=== PATIENT | male | born 1965 | race Caucasian/White ===

== ENCOUNTER 2016-04-08 05:32 | Emergency (ER) | payer MEDICAID ==
[~2016-04-08] VITALS: Ht 195.6 cm; Wt 172.4 kg
[~2016-04-08 05:32] MED LIST: ASPI-231 PO; CARV3.1240 PO; CHOL20007 OR; GABA800T97 PO; GLIP-116 PO; INSLANTI SC; LIS20T PO; NOR10T PO; SIMV-8 PO; WARF7.5T20 PO
[2016-04-08] MEDS ORDERED: cloNIDine HCL 0.1 MG TAB ONE (05:45)
[2016-04-08] MEDS ORDERED: cloNIDine HCL 0.1 MG TAB PO ONE (06:00)
[2016-04-08 06:05] LABS: Urine RBC None Seen /hpf (0 - 3)
[2016-04-08 06:16] LABS: Urine Bilirubin Negative (Negative); Urine Blood Negative /uL (Negative); Urine Color Yellow (Yellow); Urine Glucose 2+ mg/dL (Normal); Urine Ketone Negative (Negative); Urine Nitrite Negative (Negative); Urine Urobilinogen Normal (Negative); Urine pH 5.5 (5.0-8.0)
[2016-04-08 07:07] LABS: DEFINITIVE VIEW TRANSMISSION; Hematocrit 43.5 % (41.0-53.0); Hemoglobin 14.1 g/dL (13.5-17.5); Mean Corpuscular Hemoglobin 29.7 pg (28.0-32.0); Mean Corpuscular Hgb Conc. 32.4 g/dL (32.0-36.0); Mean Corpuscular Volume 91.7 fL (80.0-100.0); Mean Platelet Volume 7.3 fL (7.4-10.4); Platelet Count (auto) 276 10^3/uL (140-450); Red Cell Distribution Width 12.6 % (11.6-16.0); SUSPECT VIEW TRANSMISSION
[2016-04-08 07:21] LABS: Partial Thromboplastin Time 26.3 sec (22.64-33.71)
[2016-04-08 07:27] LABS: Albumin 3.7 g/dL (3.4-5.0); BUN/Creatinine Ratio 20.4; Bilirubin, Total 0.4 mg/dL (0.2-1.0); Calcium 9.1 mg/dL (8.5-10.1); INR 1.35 (0.9-1.15); Metamyelocytes % 0; Myelocytes % 0; Potassium 3.9 mmol/L (3.5-5.1); Promyelocytes % 0; Prothrombin Time 13.9 sec (9.37-12.3); Reactive Lymphocytes 0
[2016-04-08 07:59] LABS: Platelet Estimate Adequate
[2016-04-08 08:24] LABS: B-Type Natriuretic Peptide 34.04 pg/mL (0-100)
[2016-04-08 08:35] LABS: Temperature: 22.2 C (20.0-25.0)
[2016-04-08 09:44] VITALS: BP 159/86
== END 2016-04-08 11:22 | disposition home or self-care (01) ==
LOC: ER 05:36
DX: R51 Headache (principal); E78.5 Hyperlipidemia, unspecified; Z86.73 Personal history of transient ischemic attack (TIA), and cerebral infarction without residual deficits; Z86.718 Personal history of other venous thrombosis and embolism; I10 Essential (primary) hypertension; E11.65 Type 2 diabetes mellitus with hyperglycemia; E66.01 Morbid (severe) obesity due to excess calories; Z68.42 Body mass index [BMI] 45.0-49.9, adult
CPT/HCPCS: 36415; 70450; 71010; 80053; 81001; 83735; 83880; 84484; 85007; 85027; 85379; 85610; 85730; 93005

== ENCOUNTER 2017-11-11 17:36 | Emergency (ER) | payer MEDICARE, MEDICAID ==
[~2017-11-11] VITALS: Ht 195.6 cm; Wt 152.4 kg
[2017-11-11 18:51] VITALS: BP 143/79
[2017-11-11] MEDS ORDERED: DESITIN (ZINC OXIDE 40%) OINT 28G TUBE TOP ONE (19:15)
== END 2017-11-11 20:23 | disposition home or self-care (01) ==
LOC: ER 18:38
DX: I89.0 Lymphedema, not elsewhere classified (principal); I25.10 Atherosclerotic heart disease of native coronary artery without angina pectoris; E78.00 Pure hypercholesterolemia, unspecified; I12.9 Hypertensive chronic kidney disease with stage 1 through stage 4 chronic kidney disease, or unspecified chronic kidney disease; E11.22 Type 2 diabetes mellitus with diabetic chronic kidney disease; N18.9 Chronic kidney disease, unspecified; Z79.82 Long term (current) use of aspirin; Z79.01 Long term (current) use of anticoagulants; Z79.891 Long term (current) use of opiate analgesic; Z79.4 Long term (current) use of insulin; Z79.899 Other long term (current) drug therapy

== ENCOUNTER 2019-09-21 16:58 | Inpatient (IN) | payer OTHER, MEDICAID ==
[~2019-09-21] VITALS: Ht 193 cm; Wt 142.2 kg
[~2019-09-21 16:58] MED LIST changes: -GLIP-116 PO; +GLIP10TA9 PO
[2019-09-21] MEDS ORDERED: SODIUM CHLORIDE 0.9% 500 ML IVB ONE (17:11)
[2019-09-21] MEDS ORDERED: levoFLOXacin 500MG 100 ML IV ONE (17:15)
[2019-09-21] MEDS ORDERED: SUCCINYLCHOLINE CHLORIDE 20 MG/ML 10ML VIAL IV ONE (20:00)
[2019-09-21] MEDS ORDERED: ETOMIDATE (2MG/ML) 20ML VIAL IV ONE (20:00)
[2019-09-21 20:20] VITALS: BP 97/35
[2019-09-21] MEDS ORDERED: MIDAZOLAM DRIP 50 mg/50mL 50 ML IV ONE (20:30)
[2019-09-21] MEDS: PROPOFOL 100 ML IV SCH (20:40)
[2019-09-21] MEDS: MIDAZOLAM DRIP 50 mg/50mL 50 ML IV SCH (20:40)
[2019-09-21 20:42] LABS: Basophils # (auto) 0 10 ^3/uL (0-0.2); Basophils % (auto) 0.1 % (0.0-2.0); Eosinophils # (auto) 0 10 ^3/uL (0-0.8); Lymphocytes # (auto) 0.5 10 ^3/uL (0.4-5.4); Lymphocytes % (auto) 6.9 % (10.0-50.0); Monocytes # (auto) 0.8 10 ^3/uL (0-1.3); Red Cell Distribution Width 14.4 % (11.8-14.3)
[2019-09-21 20:44] LABS: Hematocrit 20.7 % (41.0-53.0); Mean Corpuscular Hemoglobin 32.4 pg (28.0-32.0); Mean Corpuscular Hgb Conc. 31.8 g/dL (32.0-36.0); Mean Corpuscular Volume 101.8 fL (80.0-100.0); Monocytes % (auto) 10.2 % (0.0-12.0); Neutrophils # (auto) 6.1 10 ^3/uL (1.6-8.6); Neutrophils % (auto) 82.8 % (37.0-80.0); Platelet Count (auto) 138 10^3/uL (140-450); Red Blood Cells 2.03 10^6/uL (4.5-5.90); White Blood Cell 7.4 10^3/uL (4.4-10.8)
[2019-09-21 20:53] LABS: Albumin 3.2 g/dL (3.4-5.0); Anion Gap 15 (5-15); Blood Urea Nitrogen 75 mg/dL (7-18); Calcium 8.2 mg/dL (8.5-10.1); Carbon Dioxide 18 mmol/L (21-32); Chloride 103 mmol/L (98-107); Glucose 312 mg/dL (74-106); Magnesium 2.7 mg/dL (1.6-2.6); Sodium 136 mmol/L (136-145)
[2019-09-21 21:02] LABS: Alanine Aminotransferase 44 U/L (16-61); Alkaline Phosphatase 63 U/L (45-117); Aspartate Aminotransferase 192 U/L (15-37); BUN/Creatinine Ratio 11.9; Bilirubin, Total 0.5 mg/dL (0.2-1.0); GFR African American 12 mL/min; GFR Non-African American 10 mL/min; Lactate Dehydrogenase 294 U/L (87-241); Total Protein 7.1 g/dL (6.4-8.2)
[2019-09-21 21:06] LABS: Hemoglobin 6.6 g/dL (13.5-17.5)
[2019-09-21 21:08] LABS: Blood Alcohol < 3.0 mg/dL (0-5)
[2019-09-21] MEDS ORDERED: SODIUM CHLORIDE 0.9% 2,000 ML IV ONE (21:15)
[2019-09-21] MEDS: NOREPINEPHRINE 8 MG/250ML KIT 250 ML IV SCH (21:21)
[2019-09-21 21:58] LABS: Urine Bacteria NONE SEEN /hpf (None Seen); Urine Blood 2+ /uL (Negative); Urine Hyaline Cast FEW /lpf (0 - 2); Urine Mucus FEW (None Seen); Urine Specific Gravity 1.026 (1.001-1.035); Urine WBC 8 /hpf (0 - 3)
[2019-09-21 22:11] LABS: Amphetamine Screen, Urine NEGATIVE (NEGATIVE); Barbiturate Scree,Urine NEGATIVE (NEGATIVE); Benzodiazephine Screen, Urine NEGATIVE (NEGATIVE); Cannabinoid Screen, Urine NEGATIVE (NEGATIVE); Cocaine Screen, Urine NEGATIVE (NEGATIVE); Phencyclidine Screen, Urine NEGATIVE (NEGATIVE)
[2019-09-21 22:15] VITALS: BP 103/54
[2019-09-21 22:19] LABS: Opiate Scree,Urine POSITIVE (NEGATIVE)
[2019-09-21] MEDS ORDERED: SODIUM BICARBONATE 50ML VIAL 150 ML in D5W 5% 1,000 ML IV SCH (22:45)
[2019-09-21] MEDS ORDERED: CALCIUM CHL 100MG/ML 1,000 MG in D5W 5% 100 ML IV ONE (22:45)
[2019-09-21] MEDS ORDERED: SODIUM BICARBONATE 8.4 % INJ 50ML VIAL IV ONE (22:45)
[2019-09-21] MEDS ORDERED: PATIENTS OWN MEDICATION (zyvox 600 MG) IV SCH (22:45)
[2019-09-21] MEDS ORDERED: DEXTROSE (50%) 50ML SYRG IV PRN (22:45)
[2019-09-21] MEDS ORDERED: SODIUM ZIRCONIUM CYCL 10 GM PAK PO ONE (22:45)
[2019-09-21 22:59] VITALS: BP 103/54
[2019-09-21] MEDS ORDERED: ALBUTEROL SULF HFA 90MCG INH 200DOSE IN SCH (23:11)
[2019-09-21] MEDS ORDERED: NITROGLYCERIN 0.4 MG SL TAB SL PRN (23:15)
[2019-09-21] MEDS ORDERED: ONDANSETRON HCL 4 MG/2 ML VIAL IV PRN (23:15)
[2019-09-21] MEDS ORDERED: MORPHINE SULF INJ 2 MG/ML SYRINGE 1ML IV PRN (23:15)
[2019-09-21] MEDS ORDERED: PANTOPRAZOLE 40 MG/10 ML VIAL INJ IV ONE (23:30)
[2019-09-21 23:38] LABS: INR 1.07 (0.9-1.15)
[2019-09-21] MEDS: ACCU-CHEK COMFORT CURVE STRIP VI SCH (23:41)
[2019-09-21] MEDS: InsuLIN REG 1unit/0.01ml Soln (100units/ml) SC SCH (23:47)
[2019-09-21] MEDS: LINEZOLID 600MG/300ML 300 ML IV SCH (23:48)
[2019-09-22] VITALS (18 sets, daily range): BP systolic 122–149; BP diastolic 58–78
[2019-09-22] MEDS ORDERED: SODIUM CHLORIDE 0.9% 1,000 ML IV ONE (04:30)
[2019-09-22] MEDS ORDERED: PIPERACILLIN-TAZOB 2.25GM 50 ML IV SCH (06:00)
[2019-09-22] MEDS: ACCU-CHEK COMFORT CURVE STRIP VI SCH ×3 (06:30→16:58)
[2019-09-22] MEDS: InsuLIN REG 1unit/0.01ml Soln (100units/ml) SC SCH ×3 (07:15→16:57)
[2019-09-22 07:30] LABS: Basophils # (auto) 0 10 ^3/uL (0-0.2); Basophils % (auto) 0.4 % (0.0-2.0); Eosinophils # (auto) 0 10 ^3/uL (0-0.8); Eosinophils % (auto) 0.2 % (0.0-7.0); Hematocrit 38.9 % (41.0-53.0); Hemoglobin 12.9 g/dL (13.5-17.5); Lymphocytes # (auto) 1.1 10 ^3/uL (0.4-5.4); Lymphocytes % (auto) 9.9 % (10.0-50.0); Mean Corpuscular Hemoglobin 31.9 pg (28.0-32.0); Mean Corpuscular Hgb Conc. 33.2 g/dL (32.0-36.0); Mean Corpuscular Volume 96.1 fL (80.0-100.0); Monocytes # (auto) 1.5 10 ^3/uL (0-1.3); Monocytes % (auto) 13.4 % (0.0-12.0); Neutrophils # (auto) 8.3 10 ^3/uL (1.6-8.6); Neutrophils % (auto) 76.1 % (37.0-80.0); Platelet Count (auto) 228 10^3/uL (140-450); Red Blood Cells 4.05 10^6/uL (4.5-5.90); Red Cell Distribution Width 13.9 % (11.8-14.3); White Blood Cell 10.9 10^3/uL (4.4-10.8)
[2019-09-22 07:53] LABS: Albumin 2.9 g/dL (3.4-5.0); Magnesium 2.4 mg/dL (1.6-2.6); Potassium 5.3 mmol/L (3.5-5.1)
[2019-09-22 07:58] LABS: BUN/Creatinine Ratio 16.6; Bilirubin, Total 0.5 mg/dL (0.2-1.0); Phosphorus 6.2 mg/dL (2.5-4.90)
[2019-09-22] MEDS: MIDAZOLAM DRIP 50 mg/50mL 50 ML IV SCH ×3 (09:29→17:02)
[2019-09-22] MEDS: ASCORBIC ACID 500 MG TAB NG SCH ×3 (09:29→22:00)
[2019-09-22] MEDS: LINEZOLID 600MG/300ML 300 ML IV SCH ×2 (10:07→21:54)
[2019-09-22] MEDS: CHOLECALCIFEROL (VITD3) 1,000IU=25mCg TAB NG SCH (10:07)
[2019-09-22] MEDS: PANTOPRAZOLE 40 MG/10 ML VIAL INJ IV SCH (10:07)
[2019-09-22] MEDS: ZINC SULFATE 220mg CAP or TAB NG SCH (10:07)
[2019-09-22 13:02] LABS: Protein, Urine 63.8 mg/dL (0.0-11.9)
[2019-09-22] MEDS: SODIUM BICARBONATE 50ML VIAL 50 ML in SOD CHL 0.45% 1,000 ML IV SCH ×2 (13:08→19:18)
[2019-09-22] MEDS: PIPERACILLIN-TAZOB 2.25GM 50 ML IV SCH ×2 (13:09→18:14)
[2019-09-22] MEDS: PROPOFOL 100 ML IV SCH (17:02)
[2019-09-22] MEDS: NOREPINEPHRINE 8 MG/250ML KIT 250 ML IV SCH (19:18)
[2019-09-23] VITALS (59 sets, daily range): BP systolic 107–170; BP diastolic 59–86
[2019-09-23] MEDS: InsuLIN REG 1unit/0.01ml Soln (100units/ml) SC SCH ×5 (00:08→23:47)
[2019-09-23] MEDS: PIPERACILLIN-TAZOB 2.25GM 50 ML IV SCH ×5 (00:19→23:47)
[2019-09-23] MEDS: ACCU-CHEK COMFORT CURVE STRIP VI SCH ×5 (00:19→23:49)
[2019-09-23 03:16] LABS: Basophils # (auto) 0 10 ^3/uL (0-0.2); Basophils % (auto) 0.1 % (0.0-2.0); Eosinophils # (auto) 0 10 ^3/uL (0-0.8); Hematocrit 36.2 % (41.0-53.0); Lymphocytes # (auto) 0.4 10 ^3/uL (0.4-5.4); Lymphocytes % (auto) 4.3 % (10.0-50.0); Mean Corpuscular Hemoglobin 31.8 pg (28.0-32.0); Mean Corpuscular Hgb Conc. 33.3 g/dL (32.0-36.0); Mean Corpuscular Volume 95.4 fL (80.0-100.0); Monocytes # (auto) 0.8 10 ^3/uL (0-1.3); Monocytes % (auto) 7.7 % (0.0-12.0); Neutrophils # (auto) 9.1 10 ^3/uL (1.6-8.6); Neutrophils % (auto) 87.9 % (37.0-80.0); Platelet Count (auto) 216 10^3/uL (140-450); Red Blood Cells 3.79 10^6/uL (4.5-5.90); Red Cell Distribution Width 13.5 % (11.8-14.3); White Blood Cell 10.3 10^3/uL (4.4-10.8)
[2019-09-23 03:51] LABS: Albumin 2.4 g/dL (3.4-5.0); BUN/Creatinine Ratio 25.6; Potassium 5.4 mmol/L (3.5-5.1)
[2019-09-23 03:53] LABS: Bilirubin, Total 0.5 mg/dL (0.2-1.0); Total Protein 6.4 g/dL (6.4-8.2)
[2019-09-23] MEDS: SODIUM BICARBONATE 50ML VIAL 50 ML in SOD CHL 0.45% 1,000 ML IV SCH (06:01)
[2019-09-23] MEDS: MIDAZOLAM DRIP 50 mg/50mL 50 ML IV SCH (08:32)
[2019-09-23] MEDS: ASCORBIC ACID 500 MG TAB NG SCH ×2 (10:00→21:45)
[2019-09-23] MEDS: LINEZOLID 600MG/300ML 300 ML IV SCH ×2 (10:25→21:45)
[2019-09-23] MEDS: SODIUM BICARBONATE 50ML VIAL 75 ML in SOD CHL 0.45% 1,000 ML IV SCH ×2 (10:25→23:47)
[2019-09-23] MEDS: ZINC SULFATE 220mg CAP or TAB NG SCH (10:55)
[2019-09-23] MEDS: PANTOPRAZOLE 40 MG/10 ML VIAL INJ IV SCH (10:55)
[2019-09-23] MEDS: CHOLECALCIFEROL (VITD3) 1,000IU=25mCg TAB NG SCH (10:56)
[2019-09-23 11:23] LABS: Basophils # (auto) 0 10 ^3/uL (0-0.2); Basophils % (auto) 0.3 % (0.0-2.0); Eosinophils # (auto) 0 10 ^3/uL (0-0.8); Hematocrit 39.6 % (41.0-53.0); Hemoglobin 13.1 g/dL (13.5-17.5); Lymphocytes # (auto) 0.7 10 ^3/uL (0.4-5.4); Mean Corpuscular Hemoglobin 31.4 pg (28.0-32.0); Mean Corpuscular Volume 94.9 fL (80.0-100.0); Monocytes # (auto) 1.1 10 ^3/uL (0-1.3); Monocytes % (auto) 10.1 % (0.0-12.0); Neutrophils # (auto) 9.3 10 ^3/uL (1.6-8.6); Neutrophils % (auto) 83.6 % (37.0-80.0); Platelet Count (auto) 206 10^3/uL (140-450); Red Blood Cells 4.18 10^6/uL (4.5-5.90); Red Cell Distribution Width 13.4 % (11.8-14.3); White Blood Cell 11.2 10^3/uL (4.4-10.8)
[2019-09-23 11:42] LABS: Anion Gap 10 (5-15); Blood Urea Nitrogen 58 mg/dL (7-18); Calcium 8.8 mg/dL (8.5-10.1); Carbon Dioxide 18 mmol/L (21-32); Chloride 112 mmol/L (98-107); Potassium 5.1 mmol/L (3.5-5.1); Sodium 140 mmol/L (136-145)
[2019-09-23 11:51] LABS: Alanine Aminotransferase 36 U/L (16-61); Albumin 2.5 g/dL (3.4-5.0); Alkaline Phosphatase 63 U/L (45-117); Aspartate Aminotransferase 68 U/L (15-37); BUN/Creatinine Ratio 28.3; Bilirubin, Total 0.6 mg/dL (0.2-1.0); GFR African American 43 mL/min; GFR Non-African American 36 mL/min; Glucose 301 mg/dL (74-106); Total Protein 6.8 g/dL (6.4-8.2)
[2019-09-23] MEDS: PROPOFOL 100 ML IV SCH ×2 (14:43→20:33)
[2019-09-23] MEDS ORDERED: DEXTROSE (50%) 50ML SYRG IV PRN (15:00)
[2019-09-23] MEDS ORDERED: APIXABAN 2.5 MG TAB PO ONE (15:00)
[2019-09-23] MEDS ORDERED: ACETAMINOPHEN 500 MG TAB PO PRN (15:45)
[2019-09-23] MEDS: NOREPINEPHRINE 8 MG/250ML KIT 250 ML IV SCH (20:33)
[2019-09-23] MEDS ORDERED: ASCORBIC ACID 500 MG TAB ONE (21:33)
[2019-09-23] MEDS: APIXABAN 2.5 MG TAB PO SCH (21:45)
[2019-09-24] VITALS (107 sets, daily range): BP systolic 104–171; BP diastolic 57–92
[2019-09-24] MEDS: MIDAZOLAM DRIP 50 mg/50mL 50 ML IV SCH ×4 (00:01→19:30)
[2019-09-24 04:37] LABS: Basophils # (auto) 0 10 ^3/uL (0-0.2); Basophils % (auto) 0.5 % (0.0-2.0); Eosinophils # (auto) 0 10 ^3/uL (0-0.8); Eosinophils % (auto) 0.4 % (0.0-7.0); Hematocrit 36.5 % (41.0-53.0); Hemoglobin 12.3 g/dL (13.5-17.5); Lymphocytes # (auto) 1.2 10 ^3/uL (0.4-5.4); Lymphocytes % (auto) 12.4 % (10.0-50.0); Mean Corpuscular Hemoglobin 31.5 pg (28.0-32.0); Mean Corpuscular Hgb Conc. 33.8 g/dL (32.0-36.0); Mean Corpuscular Volume 93.2 fL (80.0-100.0); Monocytes # (auto) 0.9 10 ^3/uL (0-1.3); Monocytes % (auto) 8.6 % (0.0-12.0); Neutrophils # (auto) 7.7 10 ^3/uL (1.6-8.6); Neutrophils % (auto) 78.1 % (37.0-80.0); Platelet Count (auto) 242 10^3/uL (140-450); Red Blood Cells 3.91 10^6/uL (4.5-5.90); Red Cell Distribution Width 13.1 % (11.8-14.3); White Blood Cell 9.9 10^3/uL (4.4-10.8)
[2019-09-24 04:54] LABS: Alanine Aminotransferase 32 U/L (16-61); Albumin 2.3 g/dL (3.4-5.0); Anion Gap 7 (5-15); Aspartate Aminotransferase 47 U/L (15-37); BUN/Creatinine Ratio 33.6; Blood Urea Nitrogen 50 mg/dL (7-18); Calcium 8.6 mg/dL (8.5-10.1); Carbon Dioxide 22 mmol/L (21-32); Chloride 112 mmol/L (98-107); GFR African American 63 mL/min; GFR Non-African American 52 mL/min; Glucose 259 mg/dL (74-106); Potassium 4.4 mmol/L (3.5-5.1); Sodium 141 mmol/L (136-145)
[2019-09-24 04:59] LABS: Alkaline Phosphatase 64 U/L (45-117); Bilirubin, Total 0.5 mg/dL (0.2-1.0); Total Protein 6.5 g/dL (6.4-8.2)
[2019-09-24] MEDS: ACCU-CHEK COMFORT CURVE STRIP VI SCH ×3 (06:00→18:12)
[2019-09-24] MEDS: InsuLIN REG 1unit/0.01ml Soln (100units/ml) SC SCH ×3 (06:00→18:34)
[2019-09-24] MEDS: PIPERACILLIN-TAZOB 2.25GM 50 ML IV SCH ×3 (06:00→18:12)
[2019-09-24] MEDS: SODIUM BICARBONATE 50ML VIAL 75 ML in SOD CHL 0.45% 1,000 ML IV SCH (06:00)
[2019-09-24] MEDS ORDERED: hydrALAZINE HCL 20 MG/ML VL ONE (06:35)
[2019-09-24] MEDS: hydrALAZINE HCL 20 MG/ML VL IV PRN ×2 (06:45→20:00)
[2019-09-24] MEDS: PROPOFOL 100 ML IV SCH ×6 (09:34→23:00)
[2019-09-24] MEDS: LINEZOLID 600MG/300ML 300 ML IV SCH ×2 (09:57→22:00)
[2019-09-24] MEDS: APIXABAN 2.5 MG TAB PO SCH ×2 (10:01→22:00)
[2019-09-24] MEDS: ZINC SULFATE 220mg CAP or TAB NG SCH (10:01)
[2019-09-24] MEDS: PANTOPRAZOLE 40 MG/10 ML VIAL INJ IV SCH (10:01)
[2019-09-24] MEDS: CHOLECALCIFEROL (VITD3) 1,000IU=25mCg TAB NG SCH (10:02)
[2019-09-24] MEDS ORDERED: ASCORBIC ACID 1,000 MG TAB ONE (10:09)
[2019-09-24] MEDS: ASCORBIC ACID 500 MG TAB NG SCH ×2 (10:10→22:00)
[2019-09-24] MEDS: SODIUM BICARBONATE 50ML VIAL 50 ML in SOD CHL 0.45% 1,000 ML IV SCH ×2 (11:59→23:00)
[2019-09-24] MEDS: NOREPINEPHRINE 8 MG/250ML KIT 250 ML IV SCH (19:58)
[2019-09-24] MEDS ORDERED: ASCORBIC ACID 500 MG TAB ONE (21:29)
[2019-09-25] VITALS (106 sets, daily range): BP systolic 35–169; BP diastolic 63–94
[2019-09-25] MEDS: MIDAZOLAM DRIP 50 mg/50mL 50 ML IV SCH ×3 (00:30→19:15)
[2019-09-25] MEDS: PROPOFOL 100 ML IV SCH ×8 (02:30→23:40)
[2019-09-25] MEDS: InsuLIN REG 1unit/0.01ml Soln (100units/ml) SC SCH ×5 (04:34→23:38)
[2019-09-25] MEDS: ACCU-CHEK COMFORT CURVE STRIP VI SCH ×5 (04:35→23:40)
[2019-09-25] MEDS: PIPERACILLIN-TAZOB 2.25GM 50 ML IV SCH ×5 (04:35→23:38)
[2019-09-25 04:38] LABS: Basophils # (auto) 0.1 10 ^3/uL (0-0.2); Basophils % (auto) 0.7 % (0.0-2.0); Eosinophils # (auto) 0.1 10 ^3/uL (0-0.8); Eosinophils % (auto) 1.8 % (0.0-7.0); Hematocrit 34.7 % (41.0-53.0); Hemoglobin 11.8 g/dL (13.5-17.5); Lymphocytes # (auto) 1.4 10 ^3/uL (0.4-5.4); Mean Corpuscular Hemoglobin 31.7 pg (28.0-32.0); Mean Corpuscular Hgb Conc. 34.1 g/dL (32.0-36.0); Mean Corpuscular Volume 93.2 fL (80.0-100.0); Monocytes # (auto) 0.8 10 ^3/uL (0-1.3); Monocytes % (auto) 10.5 % (0.0-12.0); Neutrophils # (auto) 4.8 10 ^3/uL (1.6-8.6); Nucleated Red Blood Cells % 0.1 %; Platelet Count (auto) 258 10^3/uL (140-450); Red Blood Cells 3.72 10^6/uL (4.5-5.90); Red Cell Distribution Width 13.1 % (11.8-14.3); White Blood Cell 7.2 10^3/uL (4.4-10.8)
[2019-09-25 05:10] LABS: Albumin 2.1 g/dL (3.4-5.0); Calcium 8.1 mg/dL (8.5-10.1); Potassium 4.3 mmol/L (3.5-5.1)
[2019-09-25 05:13] LABS: BUN/Creatinine Ratio 32.5; Bilirubin, Total 0.4 mg/dL (0.2-1.0); Total Protein 5.7 g/dL (6.4-8.2)
[2019-09-25] MEDS: SODIUM BICARBONATE 50ML VIAL 50 ML in SOD CHL 0.45% 1,000 ML IV SCH (09:00)
[2019-09-25] MEDS ORDERED: FUROSEMIDE 40 MG/4 ML VIAL ONE (10:43)
[2019-09-25] MEDS ORDERED: SODIUM BICARBONATE 50ML VIAL 50 ML in SOD CHL 0.45% 1,000 ML IV SCH (10:45)
[2019-09-25] MEDS ORDERED: FUROSEMIDE 40 MG/4 ML VIAL IV ONE (10:45)
[2019-09-25] MEDS ORDERED: INSULIN LANTUS (GLARGINE) 1 /0.01ml (100units/ml) SC ONE (11:00)
[2019-09-25] MEDS: CHOLECALCIFEROL (VITD3) 1,000IU=25mCg TAB NG SCH (11:09)
[2019-09-25] MEDS: ASCORBIC ACID 500 MG TAB NG SCH ×2 (11:09→21:59)
[2019-09-25] MEDS: ZINC SULFATE 220mg CAP or TAB NG SCH (11:09)
[2019-09-25] MEDS: LINEZOLID 600MG/300ML 300 ML IV SCH ×2 (11:09→22:00)
[2019-09-25] MEDS: PANTOPRAZOLE 40 MG/10 ML VIAL INJ IV SCH (11:09)
[2019-09-25] MEDS ORDERED: POTASSIUM EFFERVESENT TAB 25 MEQ GT ONE (11:15)
[2019-09-25] MEDS ORDERED: APIXABAN 2.5 MG TAB PO ONE (11:30)
[2019-09-25] MEDS: IPRATROPIUM BROM 0.5 MG/2.5ML INH SOL NEB SCH ×2 (12:04→18:13)
[2019-09-25] MEDS: ALBUTEROL SULF 2.5 MG/0.5ML(0.5%) NEB SOLN NEB PRN ×2 (12:04→18:13)
[2019-09-25] MEDS: NOREPINEPHRINE 8 MG/250ML KIT 250 ML IV SCH (20:58)
[2019-09-25] MEDS ORDERED: ASCORBIC ACID 500 MG TAB ONE (21:18)
[2019-09-25] MEDS: APIXABAN 5 MG TAB PO SCH (21:59)
[2019-09-25] MEDS ORDERED: INSULIN LANTUS (GLARGINE) 1 /0.01ml (100units/ml) SC SCH (22:00)
[2019-09-26] VITALS (102 sets, daily range): BP systolic 87–168; BP diastolic 53–85
[2019-09-26] MEDS: IPRATROPIUM BROM 0.5 MG/2.5ML INH SOL NEB SCH ×4 (00:28→18:18)
[2019-09-26] MEDS: PIPERACILLIN-TAZOB 2.25GM 50 ML IV SCH ×3 (04:49→18:05)
[2019-09-26] MEDS: InsuLIN REG 1unit/0.01ml Soln (100units/ml) SC SCH ×3 (04:49→18:08)
[2019-09-26] MEDS ORDERED: hydrALAZINE HCL 20 MG/ML VL ONE (04:51)
[2019-09-26] MEDS: MIDAZOLAM DRIP 50 mg/50mL 50 ML IV SCH (04:54)
[2019-09-26] MEDS: PROPOFOL 100 ML IV SCH (04:54)
[2019-09-26] MEDS: hydrALAZINE HCL 20 MG/ML VL IV PRN (04:56)
[2019-09-26] MEDS: ACCU-CHEK COMFORT CURVE STRIP VI SCH ×3 (06:00→18:07)
[2019-09-26 06:15] LABS: Basophils # (auto) 0 10 ^3/uL (0-0.2); Basophils % (auto) 0.5 % (0.0-2.0); Eosinophils # (auto) 0.2 10 ^3/uL (0-0.8); Eosinophils % (auto) 2.2 % (0.0-7.0); Hematocrit 36.3 % (41.0-53.0); Hemoglobin 12.6 g/dL (13.5-17.5); Lymphocytes # (auto) 1.7 10 ^3/uL (0.4-5.4); Lymphocytes % (auto) 22.3 % (10.0-50.0); Mean Corpuscular Hemoglobin 32.2 pg (28.0-32.0); Mean Corpuscular Hgb Conc. 34.8 g/dL (32.0-36.0); Mean Corpuscular Volume 92.5 fL (80.0-100.0); Monocytes # (auto) 0.7 10 ^3/uL (0-1.3); Monocytes % (auto) 9.8 % (0.0-12.0); Neutrophils # (auto) 4.9 10 ^3/uL (1.6-8.6); Neutrophils % (auto) 65.2 % (37.0-80.0); Platelet Count (auto) 388 10^3/uL (140-450); Red Blood Cells 3.92 10^6/uL (4.5-5.90); White Blood Cell 7.4 10^3/uL (4.4-10.8)
[2019-09-26 06:25] LABS: Potassium 5.2 mmol/L (3.5-5.1)
[2019-09-26 06:32] LABS: Albumin 2.2 g/dL (3.4-5.0); BUN/Creatinine Ratio 26.4; Bilirubin, Total 0.6 mg/dL (0.2-1.0); Calcium 8.5 mg/dL (8.5-10.1); Total Protein 6.6 g/dL (6.4-8.2)
[2019-09-26] MEDS: SODIUM CHLORIDE 0.9% 1,000 ML IV SCH (09:15)
[2019-09-26] MEDS ORDERED: AZITHROMYCIN 500MG/ 250ML 250 ML IV SCH (10:00)
[2019-09-26] MEDS: APIXABAN 5 MG TAB PO SCH ×2 (10:29→22:56)
[2019-09-26] MEDS: ZINC SULFATE 220mg CAP or TAB NG SCH (10:29)
[2019-09-26] MEDS: CHOLECALCIFEROL (VITD3) 1,000IU=25mCg TAB NG SCH (10:29)
[2019-09-26] MEDS: PANTOPRAZOLE 40 MG/10 ML VIAL INJ IV SCH (10:39)
[2019-09-26] MEDS ORDERED: VANCOMYCIN PER PHARMACY 0 MG IV SCH (11:00)
[2019-09-26] MEDS: INSULIN LANTUS (GLARGINE) 1 /0.01ml (100units/ml) SC SCH ×2 (12:30→22:56)
[2019-09-26] MEDS ORDERED: ASCORBIC ACID 500 MG TAB ONE (12:36)
[2019-09-26] MEDS: ASCORBIC ACID 500 MG TAB NG SCH ×2 (12:47→23:03)
[2019-09-26] MEDS: VANCOMYCIN 1GM/250ML 250 ML IV SCH ×2 (14:00→22:56)
[2019-09-26] MEDS: ALBUTEROL SULF 2.5 MG/0.5ML(0.5%) NEB SOLN NEB PRN (18:18)
[2019-09-26] MEDS: NOREPINEPHRINE 8 MG/250ML KIT 250 ML IV SCH (20:58)
[2019-09-27] VITALS (100 sets, daily range): BP systolic 95–173; BP diastolic 50–91
[2019-09-27] MEDS: ALBUTEROL SULF 2.5 MG/0.5ML(0.5%) NEB SOLN NEB PRN ×4 (00:24→18:14)
[2019-09-27] MEDS: IPRATROPIUM BROM 0.5 MG/2.5ML INH SOL NEB SCH ×4 (00:24→18:14)
[2019-09-27] MEDS: hydrALAZINE HCL 20 MG/ML VL IV PRN (01:55)
[2019-09-27] MEDS: PROPOFOL 100 ML IV SCH (02:00)
[2019-09-27 04:27] LABS: Basophils # (auto) 0 10 ^3/uL (0-0.2); Basophils % (auto) 0.3 % (0.0-2.0); Eosinophils # (auto) 0.3 10 ^3/uL (0-0.8); Hematocrit 39.1 % (41.0-53.0); Hemoglobin 13.1 g/dL (13.5-17.5); Lymphocytes # (auto) 1.6 10 ^3/uL (0.4-5.4); Lymphocytes % (auto) 18.1 % (10.0-50.0); Mean Corpuscular Hemoglobin 31.4 pg (28.0-32.0); Mean Corpuscular Hgb Conc. 33.6 g/dL (32.0-36.0); Mean Corpuscular Volume 93.5 fL (80.0-100.0); Monocytes # (auto) 0.8 10 ^3/uL (0-1.3); Monocytes % (auto) 9.3 % (0.0-12.0); Neutrophils # (auto) 6.3 10 ^3/uL (1.6-8.6); Neutrophils % (auto) 69.3 % (37.0-80.0); Nucleated Red Blood Cells % 0.1 %; Platelet Count (auto) 295 10^3/uL (140-450); Red Blood Cells 4.18 10^6/uL (4.5-5.90); Red Cell Distribution Width 13.2 % (11.8-14.3); White Blood Cell 9.1 10^3/uL (4.4-10.8)
[2019-09-27 04:45] LABS: Albumin 2.4 g/dL (3.4-5.0); Calcium 8.4 mg/dL (8.5-10.1)
[2019-09-27 04:47] LABS: BUN/Creatinine Ratio 26.6
[2019-09-27 04:49] LABS: Bilirubin, Total 0.4 mg/dL (0.2-1.0); Total Protein 6.7 g/dL (6.4-8.2)
[2019-09-27] MEDS: VANCOMYCIN 1GM/250ML 250 ML IV SCH ×3 (06:00→20:43)
[2019-09-27] MEDS: InsuLIN REG 1unit/0.01ml Soln (100units/ml) SC SCH ×4 (06:00→17:55)
[2019-09-27] MEDS: ACCU-CHEK COMFORT CURVE STRIP VI SCH ×4 (06:00→18:17)
[2019-09-27] MEDS: SODIUM CHLORIDE 0.9% 1,000 ML IV SCH ×2 (06:58→18:35)
[2019-09-27] MEDS: PIPERACILLIN-TAZOB 2.25GM 50 ML IV SCH ×3 (06:59→12:27)
[2019-09-27] MEDS: ZINC SULFATE 220mg CAP or TAB NG SCH (10:00)
[2019-09-27] MEDS: CHOLECALCIFEROL (VITD3) 1,000IU=25mCg TAB NG SCH (10:00)
[2019-09-27] MEDS ORDERED: levoFLOXacin 500MG 100 ML IV SCH (10:00)
[2019-09-27] MEDS: PANTOPRAZOLE 40 MG/10 ML VIAL INJ IV SCH (11:09)
[2019-09-27] MEDS: INSULIN LANTUS (GLARGINE) 1 /0.01ml (100units/ml) SC SCH ×2 (11:09→23:41)
[2019-09-27] MEDS: APIXABAN 5 MG TAB PO SCH ×2 (11:09→22:00)
[2019-09-27] MEDS: ASCORBIC ACID 500 MG TAB NG SCH (11:10)
[2019-09-27] MEDS: PIPERACILLIN-TAZOB 3.375GM 100 ML IV SCH (18:17)
[2019-09-27] MEDS: NOREPINEPHRINE 8 MG/250ML KIT 250 ML IV SCH (20:58)
[2019-09-27] MEDS: MIDAZOLAM DRIP 50 mg/50mL 50 ML IV SCH (22:13)
[2019-09-28] VITALS (89 sets, daily range): BP systolic 69–189; BP diastolic 41–103
[2019-09-28] MEDS: ALBUTEROL SULF 2.5 MG/0.5ML(0.5%) NEB SOLN NEB PRN ×2 (00:24→05:48)
[2019-09-28] MEDS: IPRATROPIUM BROM 0.5 MG/2.5ML INH SOL NEB SCH ×4 (00:24→19:26)
[2019-09-28] MEDS: VANCOMYCIN 1GM/250ML 250 ML IV SCH ×3 (03:00→17:00)
[2019-09-28 04:48] LABS: Basophils # (auto) 0 10 ^3/uL (0-0.2); Basophils % (auto) 0.4 % (0.0-2.0); Eosinophils # (auto) 0.4 10 ^3/uL (0-0.8); Eosinophils % (auto) 4.1 % (0.0-7.0); Hematocrit 38.3 % (41.0-53.0); Hemoglobin 12.5 g/dL (13.5-17.5); Lymphocytes # (auto) 1.7 10 ^3/uL (0.4-5.4); Mean Corpuscular Hemoglobin 30.7 pg (28.0-32.0); Mean Corpuscular Hgb Conc. 32.7 g/dL (32.0-36.0); Mean Corpuscular Volume 93.8 fL (80.0-100.0); Monocytes % (auto) 10.3 % (0.0-12.0); Neutrophils % (auto) 68.2 % (37.0-80.0); Platelet Count (auto) 307 10^3/uL (140-450); Red Blood Cells 4.08 10^6/uL (4.5-5.90); Red Cell Distribution Width 13.1 % (11.8-14.3); White Blood Cell 10.2 10^3/uL (4.4-10.8)
[2019-09-28 04:59] LABS: Calcium 8.3 mg/dL (8.5-10.1); Potassium 3.9 mmol/L (3.5-5.1)
[2019-09-28 05:06] LABS: Albumin 2.3 g/dL (3.4-5.0); BUN/Creatinine Ratio 25.7; Bilirubin, Total 0.4 mg/dL (0.2-1.0); Phosphorus 3.1 mg/dL (2.5-4.90); Total Protein 6.6 g/dL (6.4-8.2)
[2019-09-28] MEDS: ACCU-CHEK COMFORT CURVE STRIP VI SCH ×4 (06:00→17:58)
[2019-09-28] MEDS: InsuLIN REG 1unit/0.01ml Soln (100units/ml) SC SCH ×4 (06:00→17:58)
[2019-09-28] MEDS: PIPERACILLIN-TAZOB 3.375GM 100 ML IV SCH ×4 (06:00→17:58)
[2019-09-28] MEDS: hydrALAZINE HCL 20 MG/ML VL IV PRN (09:38)
[2019-09-28] MEDS: PANTOPRAZOLE 40 MG/10 ML VIAL INJ IV SCH (09:38)
[2019-09-28] MEDS: APIXABAN 5 MG TAB PO SCH ×2 (09:39→22:00)
[2019-09-28] MEDS: levoFLOXacin 750MG 150 ML IV SCH (09:39)
[2019-09-28] MEDS: INSULIN LANTUS (GLARGINE) 1 /0.01ml (100units/ml) SC SCH ×2 (10:24→22:20)
[2019-09-28] MEDS: MORPHINE SULF INJ 2 MG/ML SYRINGE 1ML IV PRN (11:10)
[2019-09-28] MEDS: SODIUM CHLORIDE 0.9% 1,000 ML IV SCH (11:15)
[2019-09-28] MEDS: DexMEDEtomidine 400 MCG in D5W 5% 96 ML IV SCH (12:16)
[2019-09-28] MEDS ORDERED: METOPROLOL TARTRATE 1MG/1ML-5ML VIAL IV ONE (12:30)
[2019-09-28] MEDS: NOREPINEPHRINE 8 MG/250ML KIT 250 ML IV SCH (20:58)
[2019-09-28] MEDS: MIDAZOLAM DRIP 50 mg/50mL 50 ML IV SCH (22:13)
[2019-09-29] VITALS (69 sets, daily range): BP systolic 96–196; BP diastolic 61–91
[2019-09-29] MEDS: InsuLIN REG 1unit/0.01ml Soln (100units/ml) SC SCH ×4 (00:10→17:58)
[2019-09-29] MEDS: ACCU-CHEK COMFORT CURVE STRIP VI SCH ×4 (00:10→17:56)
[2019-09-29] MEDS: VANCOMYCIN 1GM/250ML 250 ML IV SCH ×4 (00:10→21:50)
[2019-09-29] MEDS: PROPOFOL 100 ML IV SCH ×2 (00:11→17:43)
[2019-09-29] MEDS: IPRATROPIUM BROM 0.5 MG/2.5ML INH SOL NEB SCH ×4 (00:21→18:56)
[2019-09-29] MEDS: PIPERACILLIN-TAZOB 3.375GM 100 ML IV SCH ×4 (00:45→18:53)
[2019-09-29] MEDS: SODIUM CHLORIDE 0.9% 1,000 ML IV SCH (03:55)
[2019-09-29] MEDS: DexMEDEtomidine 400 MCG in D5W 5% 96 ML IV SCH ×2 (04:30→15:16)
[2019-09-29] MEDS: ALBUTEROL SULF 2.5 MG/0.5ML(0.5%) NEB SOLN NEB PRN ×3 (06:13→18:56)
[2019-09-29 06:55] LABS: Basophils # (auto) 0 10 ^3/uL (0-0.2); Basophils % (auto) 0.5 % (0.0-2.0); Eosinophils # (auto) 0.4 10 ^3/uL (0-0.8); Eosinophils % (auto) 4.3 % (0.0-7.0); Hematocrit 38.3 % (41.0-53.0); Hemoglobin 12.8 g/dL (13.5-17.5); Lymphocytes # (auto) 1.5 10 ^3/uL (0.4-5.4); Lymphocytes % (auto) 16.4 % (10.0-50.0); Mean Corpuscular Hemoglobin 31.3 pg (28.0-32.0); Mean Corpuscular Hgb Conc. 33.4 g/dL (32.0-36.0); Mean Corpuscular Volume 93.8 fL (80.0-100.0); Monocytes # (auto) 1.1 10 ^3/uL (0-1.3); Monocytes % (auto) 12.2 % (0.0-12.0); Neutrophils # (auto) 6.1 10 ^3/uL (1.6-8.6); Neutrophils % (auto) 66.6 % (37.0-80.0); Platelet Count (auto) 292 10^3/uL (140-450); Red Blood Cells 4.09 10^6/uL (4.5-5.90); Red Cell Distribution Width 12.8 % (11.8-14.3); White Blood Cell 9.2 10^3/uL (4.4-10.8)
[2019-09-29 07:12] LABS: Albumin 2.4 g/dL (3.4-5.0); BUN/Creatinine Ratio 22.9; Calcium 8.6 mg/dL (8.5-10.1); Potassium 3.4 mmol/L (3.5-5.1)
[2019-09-29 07:15] LABS: Bilirubin, Total 0.6 mg/dL (0.2-1.0); Total Protein 6.7 g/dL (6.4-8.2)
[2019-09-29] MEDS: levoFLOXacin 750MG 150 ML IV SCH (10:37)
[2019-09-29] MEDS: PANTOPRAZOLE 40 MG/10 ML VIAL INJ IV SCH (10:37)
[2019-09-29] MEDS: APIXABAN 5 MG TAB PO SCH ×2 (10:38→22:15)
[2019-09-29] MEDS: INSULIN LANTUS (GLARGINE) 1 /0.01ml (100units/ml) SC SCH ×2 (10:40→22:17)
[2019-09-29] MEDS: NOREPINEPHRINE 8 MG/250ML KIT 250 ML IV SCH (20:58)
[2019-09-29] MEDS: MIDAZOLAM DRIP 50 mg/50mL 50 ML IV SCH (22:13)
[2019-09-29] MEDS: hydrALAZINE HCL 20 MG/ML VL IV PRN (22:20)
[2019-09-30] VITALS (38 sets, daily range): BP systolic 154–191; BP diastolic 78–95
[2019-09-30] MEDS: ALBUTEROL SULF 2.5 MG/0.5ML(0.5%) NEB SOLN NEB PRN ×5 (00:16→23:58)
[2019-09-30] MEDS: IPRATROPIUM BROM 0.5 MG/2.5ML INH SOL NEB SCH ×5 (00:16→23:58)
[2019-09-30] MEDS: PIPERACILLIN-TAZOB 3.375GM 100 ML IV SCH ×4 (00:30→18:00)
[2019-09-30] MEDS: ACCU-CHEK COMFORT CURVE STRIP VI SCH ×4 (00:40→18:03)
[2019-09-30] MEDS: InsuLIN REG 1unit/0.01ml Soln (100units/ml) SC SCH ×4 (00:42→17:56)
[2019-09-30] MEDS: SODIUM CHLORIDE 0.9% 1,000 ML IV SCH ×3 (03:30→20:00)
[2019-09-30] MEDS: VANCOMYCIN 1GM/250ML 250 ML IV SCH ×3 (03:42→18:03)
[2019-09-30 04:41] LABS: Basophils # (auto) 0 10 ^3/uL (0-0.2); Basophils % (auto) 0.5 % (0.0-2.0); Eosinophils # (auto) 0.3 10 ^3/uL (0-0.8); Eosinophils % (auto) 3.3 % (0.0-7.0); Hematocrit 36.8 % (41.0-53.0); Hemoglobin 12.6 g/dL (13.5-17.5); Lymphocytes # (auto) 1.4 10 ^3/uL (0.4-5.4); Lymphocytes % (auto) 17.8 % (10.0-50.0); Mean Corpuscular Hemoglobin 31.5 pg (28.0-32.0); Mean Corpuscular Hgb Conc. 34.2 g/dL (32.0-36.0); Mean Corpuscular Volume 92.3 fL (80.0-100.0); Monocytes % (auto) 12.6 % (0.0-12.0); Neutrophils # (auto) 5.1 10 ^3/uL (1.6-8.6); Neutrophils % (auto) 65.8 % (37.0-80.0); Platelet Count (auto) 298 10^3/uL (140-450); Red Blood Cells 3.99 10^6/uL (4.5-5.90); Red Cell Distribution Width 12.8 % (11.8-14.3); White Blood Cell 7.7 10^3/uL (4.4-10.8)
[2019-09-30 05:02] LABS: BUN/Creatinine Ratio 17.5; Calcium 8.8 mg/dL (8.5-10.1)
[2019-09-30 05:17] LABS: Potassium 2.9 mmol/L (3.5-5.1)
[2019-09-30] MEDS: POTASSIUM CHL 20MEQ/100ML 100 ML IV SCH ×7 (05:45→22:02)
[2019-09-30] MEDS ORDERED: POTASSIUM CHL 20MEQ/100ML 100 ML IV ONE (05:58)
[2019-09-30] MEDS: APIXABAN 5 MG TAB PO SCH ×2 (09:30→22:00)
[2019-09-30] MEDS: PANTOPRAZOLE 40 MG/10 ML VIAL INJ IV SCH (09:44)
[2019-09-30] MEDS: INSULIN LANTUS (GLARGINE) 1 /0.01ml (100units/ml) SC SCH (09:44)
[2019-09-30] MEDS: levoFLOXacin 750MG 150 ML IV SCH (09:44)
[2019-09-30] MEDS ORDERED: GABA-339 PO (12:51)
[2019-09-30] MEDS ORDERED: ACETAMINOPHEN 650 MG RECT SUPP PR PRN (14:45)
[2019-09-30] MEDS: hydrALAZINE HCL 20 MG/ML VL IV PRN ×2 (16:10→22:04)
[2019-09-30] MEDS ORDERED: cloNIDine 0.1 mg/24hr 7 DAY PATCH TD SCH (17:45)
[2019-09-30] MEDS: LABETALOL HCL 5 MG/ML 4ML SYRINGE IV PRN ×2 (18:04→22:00)
[2019-09-30] MEDS ORDERED: LABETALOL HCL 5 MG/ML ML 20ML VIAL IV ONE (21:55)
[2019-10-01] VITALS (79 sets, daily range): BP systolic 126–194; BP diastolic 72–99
[2019-10-01] MEDS: VANCOMYCIN 1GM/250ML 250 ML IV SCH ×4 (00:56→21:50)
[2019-10-01 04:49] LABS: Basophils # (auto) 0.1 10 ^3/uL (0-0.2); Basophils % (auto) 1.1 % (0.0-2.0); Eosinophils # (auto) 0.3 10 ^3/uL (0-0.8); Eosinophils % (auto) 3.8 % (0.0-7.0); Hematocrit 37.8 % (41.0-53.0); Hemoglobin 12.7 g/dL (13.5-17.5); Lymphocytes # (auto) 1.5 10 ^3/uL (0.4-5.4); Lymphocytes % (auto) 21.4 % (10.0-50.0); Mean Corpuscular Hemoglobin 31.2 pg (28.0-32.0); Mean Corpuscular Hgb Conc. 33.5 g/dL (32.0-36.0); Mean Corpuscular Volume 93.3 fL (80.0-100.0); Monocytes % (auto) 13.4 % (0.0-12.0); Neutrophils # (auto) 4.3 10 ^3/uL (1.6-8.6); Neutrophils % (auto) 60.3 % (37.0-80.0); Nucleated Red Blood Cells % 0.1 %; Platelet Count (auto) 332 10^3/uL (140-450); Red Blood Cells 4.06 10^6/uL (4.5-5.90); White Blood Cell 7.2 10^3/uL (4.4-10.8)
[2019-10-01 05:14] LABS: BUN/Creatinine Ratio 14.1; Calcium 8.4 mg/dL (8.5-10.1); Potassium 3.7 mmol/L (3.5-5.1)
[2019-10-01] MEDS: hydrALAZINE HCL 20 MG/ML VL IV PRN (05:22)
[2019-10-01] MEDS: PIPERACILLIN-TAZOB 3.375GM 100 ML IV SCH ×5 (05:22→23:32)
[2019-10-01] MEDS: InsuLIN REG 1unit/0.01ml Soln (100units/ml) SC SCH ×5 (05:26→23:30)
[2019-10-01] MEDS: ACCU-CHEK COMFORT CURVE STRIP VI SCH ×5 (05:26→23:32)
[2019-10-01] MEDS: IPRATROPIUM BROM 0.5 MG/2.5ML INH SOL NEB SCH ×3 (06:30→19:24)
[2019-10-01] MEDS: ALBUTEROL SULF 2.5 MG/0.5ML(0.5%) NEB SOLN NEB PRN ×3 (06:31→19:24)
[2019-10-01] MEDS: LABETALOL HCL 5 MG/ML 4ML SYRINGE IV PRN (07:09)
[2019-10-01] MEDS: NOREPINEPHRINE 8 MG/250ML KIT 250 ML IV SCH (08:51)
[2019-10-01] MEDS: APIXABAN 5 MG TAB PO SCH ×3 (09:10→21:54)
[2019-10-01] MEDS: PANTOPRAZOLE 40 MG/10 ML VIAL INJ IV SCH (09:21)
[2019-10-01] MEDS: levoFLOXacin 750MG 150 ML IV SCH (11:10)
[2019-10-01] MEDS ORDERED: cloNIDine 0.1 mg/24hr 7 DAY PATCH TD SCH (11:15)
[2019-10-01] MEDS ORDERED: hydrALAZINE HCL 20 MG/ML VL IV PRN (11:15)
[2019-10-01] MEDS ORDERED: LABETALOL HCL 5 MG/ML 4ML SYRINGE IV PRN (11:15)
[2019-10-01] MEDS: SODIUM CHLORIDE 0.9% 1,000 ML IV SCH (21:54)
[2019-10-02] VITALS (55 sets, daily range): BP systolic 116–194; BP diastolic 60–94
[2019-10-02] MEDS: ALBUTEROL SULF 2.5 MG/0.5ML(0.5%) NEB SOLN NEB PRN ×3 (00:22→11:49)
[2019-10-02] MEDS: IPRATROPIUM BROM 0.5 MG/2.5ML INH SOL NEB SCH ×4 (00:22→18:42)
[2019-10-02] MEDS: VANCOMYCIN 1GM/250ML 250 ML IV SCH ×3 (04:35→17:00)
[2019-10-02 05:00] LABS: Basophils # (auto) 0.1 10 ^3/uL (0-0.2); Basophils % (auto) 0.8 % (0.0-2.0); Eosinophils # (auto) 0.3 10 ^3/uL (0-0.8); Eosinophils % (auto) 3.8 % (0.0-7.0); Lymphocytes # (auto) 1.6 10 ^3/uL (0.4-5.4); Lymphocytes % (auto) 21.1 % (10.0-50.0); Mean Corpuscular Hgb Conc. 33.5 g/dL (32.0-36.0); Mean Corpuscular Volume 92.6 fL (80.0-100.0); Monocytes % (auto) 12.6 % (0.0-12.0); Neutrophils # (auto) 4.8 10 ^3/uL (1.6-8.6); Neutrophils % (auto) 61.7 % (37.0-80.0); Nucleated Red Blood Cells % 0.1 %; Platelet Count (auto) 318 10^3/uL (140-450); Red Blood Cells 4.21 10^6/uL (4.5-5.90); Red Cell Distribution Width 12.9 % (11.8-14.3); White Blood Cell 7.8 10^3/uL (4.4-10.8)
[2019-10-02 05:17] LABS: BUN/Creatinine Ratio 14.6; Calcium 8.4 mg/dL (8.5-10.1); Potassium 3.2 mmol/L (3.5-5.1)
[2019-10-02] MEDS: PIPERACILLIN-TAZOB 3.375GM 100 ML IV SCH ×3 (05:33→18:26)
[2019-10-02] MEDS: InsuLIN REG 1unit/0.01ml Soln (100units/ml) SC SCH ×3 (05:34→17:46)
[2019-10-02] MEDS: ACCU-CHEK COMFORT CURVE STRIP VI SCH ×3 (05:34→17:41)
[2019-10-02] MEDS: PANTOPRAZOLE 40 MG/10 ML VIAL INJ IV SCH (09:34)
[2019-10-02] MEDS: APIXABAN 5 MG TAB PO SCH ×2 (09:34→22:00)
[2019-10-02] MEDS: levoFLOXacin 750MG 150 ML IV SCH (09:34)
[2019-10-02] MEDS ORDERED: POTASSIUM CHL 20 Meq TABLET PO ONE ×2 (10:00→11:00)
[2019-10-02] MEDS ORDERED: CARVEDILOL 3.125 MG TAB PO ONE (11:00)
[2019-10-02] MEDS ORDERED: LISINOPRIL 20 MG TAB PO ONE (11:00)
[2019-10-02] MEDS ORDERED: ASPirin-EC 81 mg tab PO ONE (11:15)
[2019-10-02] MEDS: MORPHINE SULF INJ 2 MG/ML SYRINGE 1ML IV PRN (20:50)
[2019-10-02] MEDS: CARVEDILOL 3.125 MG TAB PO SCH (22:00)
[2019-10-03] VITALS (45 sets, daily range): BP systolic 110–159; BP diastolic 58–85
[2019-10-03] MEDS: ACCU-CHEK COMFORT CURVE STRIP VI SCH ×4 (00:25→18:00)
[2019-10-03] MEDS: InsuLIN REG 1unit/0.01ml Soln (100units/ml) SC SCH ×4 (00:26→18:00)
[2019-10-03] MEDS: ALBUTEROL SULF 2.5 MG/0.5ML(0.5%) NEB SOLN NEB PRN ×4 (00:31→19:42)
[2019-10-03] MEDS: IPRATROPIUM BROM 0.5 MG/2.5ML INH SOL NEB SCH ×4 (00:31→19:42)
[2019-10-03 05:07] LABS: Basophils # (auto) 0.1 10 ^3/uL (0-0.2); Basophils % (auto) 0.8 % (0.0-2.0); Eosinophils # (auto) 0.3 10 ^3/uL (0-0.8); Eosinophils % (auto) 4.6 % (0.0-7.0); Hematocrit 38.6 % (41.0-53.0); Hemoglobin 12.9 g/dL (13.5-17.5); Lymphocytes # (auto) 1.4 10 ^3/uL (0.4-5.4); Lymphocytes % (auto) 18.6 % (10.0-50.0); Mean Corpuscular Hemoglobin 31.2 pg (28.0-32.0); Mean Corpuscular Hgb Conc. 33.6 g/dL (32.0-36.0); Mean Corpuscular Volume 92.8 fL (80.0-100.0); Monocytes # (auto) 0.8 10 ^3/uL (0-1.3); Monocytes % (auto) 10.1 % (0.0-12.0); Neutrophils % (auto) 65.9 % (37.0-80.0); Platelet Count (auto) 308 10^3/uL (140-450); Red Blood Cells 4.16 10^6/uL (4.5-5.90); Red Cell Distribution Width 13.2 % (11.8-14.3); White Blood Cell 7.6 10^3/uL (4.4-10.8)
[2019-10-03 05:23] LABS: Potassium 3.4 mmol/L (3.5-5.1)
[2019-10-03 05:28] LABS: Calcium 8.8 mg/dL (8.5-10.1)
[2019-10-03] MEDS: PIPERACILLIN-TAZOB 3.375GM 100 ML IV SCH ×5 (06:27→23:58)
[2019-10-03] MEDS ORDERED: INSULIN LANTUS (GLARGINE) 1 /0.01ml (100units/ml) SC SCH (07:00)
[2019-10-03] MEDS ORDERED: cloNIDine HCL 0.1 MG TAB PO PRN (08:00)
[2019-10-03] MEDS: LISINOPRIL 20 MG TAB PO SCH ×2 (08:24→10:38)
[2019-10-03] MEDS: hydrALAZINE HCL 25 MG TAB PO SCH ×3 (08:25→21:44)
[2019-10-03] MEDS ORDERED: ASPirin-EC 81 mg tab PO SCH (10:00)
[2019-10-03] MEDS ORDERED: LISINOPRIL 20 MG TAB PO SCH (10:00)
[2019-10-03] MEDS: levoFLOXacin 750MG 150 ML IV SCH (10:37)
[2019-10-03] MEDS: PANTOPRAZOLE 40 MG/10 ML VIAL INJ IV SCH (10:37)
[2019-10-03] MEDS: CARVEDILOL 3.125 MG TAB PO SCH ×2 (10:38→21:45)
[2019-10-03] MEDS: APIXABAN 5 MG TAB PO SCH ×2 (10:38→21:45)
[2019-10-03] MEDS ORDERED: LISI-646 PO (11:36)
[2019-10-03] MEDS ORDERED: ACE650RS PR (11:36)
[2019-10-03] MEDS ORDERED: APIX5TAB PO (11:36)
[2019-10-03] MEDS ORDERED: IPR002IS NEB (11:36)
[2019-10-03] MEDS ORDERED: INSREGI SC (11:36)
[2019-10-03] MEDS ORDERED: ALB5IS NEB (11:36)
[2019-10-03] MEDS ORDERED: NITR0.4S29 SL (11:36)
[2019-10-03] MEDS ORDERED: CLON0.1D TD (11:36)
[2019-10-03] MEDS ORDERED: CAR3125T PO (11:36)
[2019-10-03] MEDS ORDERED: CLO01T PO (11:36)
[2019-10-03] MEDS ORDERED: INSLANTI SC (11:36)
[2019-10-03] MEDS ORDERED: HYDR-2691 PO (11:36)
[2019-10-03] MEDS: VANCOMYCIN 1GM/250ML 250 ML IV SCH (17:00)
[2019-10-04] MEDS: InsuLIN REG 1unit/0.01ml Soln (100units/ml) SC SCH (00:02)
[2019-10-04] MEDS: ACCU-CHEK COMFORT CURVE STRIP VI SCH (00:04)
[2019-10-04] MEDS: ALBUTEROL SULF 2.5 MG/0.5ML(0.5%) NEB SOLN NEB PRN (00:27)
[2019-10-04] MEDS: IPRATROPIUM BROM 0.5 MG/2.5ML INH SOL NEB SCH (00:27)
== END 2019-10-04 01:30 | DRG 870 ==
LOC: ER 16:58 → EDBD 16:58 → TELE 16:59 → ICU WEST 09-23 11:30 → TELE-WESTW 10-03 21:15
PROVIDERS: ADMIT Hospitalist; ATTEND Hospitalist
PROC: 06HY33Z Insertion of Infusion Device into Lower Vein, Percutaneous Approach (ICD-10-PCS; 2019-09-21)
PROC: 30230N1 Transfusion of Nonautologous Red Blood Cells into Peripheral Vein, Open Approach (ICD-10-PCS; principal; 2019-09-22)
PROC: 5A1955Z Respiratory Ventilation, Greater than 96 Consecutive Hours (ICD-10-PCS; 2019-09-22)
PROC: 0BH17EZ Insertion of Endotracheal Airway into Trachea, Via Natural or Artificial Opening (ICD-10-PCS; 2019-09-22)
DX: A41.9 Sepsis, unspecified organism (principal); J96.01 Acute respiratory failure with hypoxia; G93.41 Metabolic encephalopathy; R65.21 Severe sepsis with septic shock; J18.9 Pneumonia, unspecified organism; N17.0 Acute kidney failure with tubular necrosis; E87.2 Acidosis; I13.0 Hypertensive heart and chronic kidney disease with heart failure and stage 1 through stage 4 chronic kidney disease, or unspecified chronic kidney disease; N18.4 Chronic kidney disease, stage 4 (severe); I16.1 Hypertensive emergency; Z68.41 Body mass index [BMI] 40.0-44.9, adult; E87.5 Hyperkalemia; D64.9 Anemia, unspecified; E11.22 Type 2 diabetes mellitus with diabetic chronic kidney disease; E11.40 Type 2 diabetes mellitus with diabetic neuropathy, unspecified; E11.65 Type 2 diabetes mellitus with hyperglycemia; E66.01 Morbid (severe) obesity due to excess calories; E78.5 Hyperlipidemia, unspecified; I50.9 Heart failure, unspecified; R13.10 Dysphagia, unspecified; I25.10 Atherosclerotic heart disease of native coronary artery without angina pectoris; F29 Unspecified psychosis not due to a substance or known physiological condition; Z86.73 Personal history of transient ischemic attack (TIA), and cerebral infarction without residual deficits; Z79.01 Long term (current) use of anticoagulants; Z86.711 Personal history of pulmonary embolism; Z82.49 Family history of ischemic heart disease and other diseases of the circulatory system; Z83.3 Family history of diabetes mellitus; Z20.828 Contact with and (suspected) exposure to other viral communicable diseases
CPT/HCPCS: 31500; 36415; 36600; 70450; 71045; 76775; 80048; 80053; 80202; 80307; 80320; 81001; 82306; 82570; 82728; 82805; 82962; 83036; 83605; 83615; 83735; 83880; 83970; 84100; 84132; 84156; 84300; 84484; 84550; 85025; 85610; 86141; 86850; 86900; 86901; 86920; 87040; 87070; 87077; 87081; 87186; 87205; 87804; 87880; 92610; 93005; 93306; 94002; 94003; 94640; 96365; 97110; 97530; 99291; C9113; G0378; J0330; J1815; J1956; J2250; J2543; J2704; J3480; J3490; J7060